=== PATIENT | female | born 1970 | race Caucasian/White ===

== ENCOUNTER 2018-09-14 19:06 | Emergency (ER) | payer SELFPAY ==
[~2018-09-14] VITALS: Ht 154.9 cm; Wt 78.6 kg
[~2018-09-14 19:06] MED LIST: AMOX-462 PO; CEFX1I IM; LORA-703 PO
[2018-09-14] MEDS ORDERED: ACETAMINOPHEN 500 MG TABLET PO ONE (21:00)
[2018-09-14] MEDS ORDERED: ALBUTEROL SULFATE HFA 90 MCG/PUFF 8 GM INHALER IH ONE (22:30)
[2018-09-14 23:00] VITALS: BP 168/92
== END 2018-09-14 23:02 | disposition home or self-care (01) ==
LOC: EMS 19:06
DX: J40 Bronchitis, not specified as acute or chronic (principal)
CPT/HCPCS: 94640; J3535

== ENCOUNTER 2018-09-16 20:12 | Emergency (ER) | payer SELFPAY ==
[~2018-09-16] VITALS: Ht 154.9 cm; Wt 78.6 kg
[2018-09-16] MEDS ORDERED: CAPT12.55 PO (20:24)
[2018-09-16] MEDS ORDERED: IPRA4AER IH (20:24)
[2018-09-16 20:30] VITALS: BP 148/96
== END 2018-09-16 21:17 | disposition home or self-care (01) ==
LOC: EMS 20:12
DX: H66.91 Otitis media, unspecified, right ear (principal); I10 Essential (primary) hypertension